=== PATIENT | female | born 1950 | race Caucasian/White ===

== ENCOUNTER 2023-05-25 13:00 | Emergency (ER) | payer OTHER ==
[2023-05-25 13:58] LABS: #Eosinphils 0.2 thou/uL (0.0-0.7); #Monocytes 0.7 thou/uL (0.11-0.59); #Neutrophils 7.4 thou/uL (1.40-6.50); %Basophils 0.4 % (0.0-1.0); %Eosinophils 1.8 % (0.0-10.0); %Lymphocytes 11.9 % (21.0-51.0); %Monocytes 7.7 % (0.0-10.0); %Neutrophils 77.9 % (42.0-75.0); Hematocrit 29.2 % (36.0-47.0); Hemoglobin 8.8 g/dL (12.0-16.0); Mean Corpuscular HGB CONC 30.1 g/dL (32.0-36.0); Mean Corpuscular Hemoglobin 27.3 pg (27.0-31.0); Mean Corpuscular Volume 90.7 fl (78.0-98.0); Mean Platelet Volume 8.9 fL (7.4-10.4); Platelet Count 340 10x3/uL (130-400); RBC Distribution Width 15.7 % (11.5-14.5); Red Blood Cell (RBC) Count 3.22 mill/uL (4.20-5.40); White Blood Cell (WBC) Count 9.5 10x3/uL (4.8-10.8)
[2023-05-25 14:18] LABS: ALT (SGPT) 13 U/L (8-55); AST (SGOT) 19 U/L (5-34); Albumin 2.6 g/dL (3.4-4.8); Alkaline Phosphatase 65 U/L (40-110); Anion Gap 7 mmol/L (10-20); BUN (Urea Nitrogen) 19 mg/dL (9.8-20.1); Bilirubin, Total 0.2 mg/dL (0.2-1.2); Calc. Creatinine Clearance 0 mL/min (70-130); Calcium 7.8 mg/dL (7.8-10.44); Carbon Dioxide 25 mmol/L (23-31); Chloride 109 mmol/L (98-107); Estimated GFR 50; Globulin 2.8 g/dL (2.4-3.5); Glucose 97 mg/dL (83-110); Potassium 4.2 mmol/L (3.5-5.1); Protein, Total 5.4 g/dL (5.8-8.1); Sodium 137 mmol/L (136-145)
[2023-05-25 16:11] LABS: Troponin I 0.013 ng/mL (< 0.028)
[2023-05-25] MEDS ORDERED: Morphine 2 MG/ML VIAL ONE (16:31)
== END 2023-05-25 18:08 | disposition home or self-care (01) ==
LOC: ERS 13:00
DX: T83.091A Other mechanical complication of indwelling urethral catheter, initial encounter (principal); R60.0 Localized edema; E11.42 Type 2 diabetes mellitus with diabetic polyneuropathy; E03.9 Hypothyroidism, unspecified; J44.9 Chronic obstructive pulmonary disease, unspecified; E78.5 Hyperlipidemia, unspecified; I10 Essential (primary) hypertension; N28.89 Other specified disorders of kidney and ureter; N32.9 Bladder disorder, unspecified; F17.210 Nicotine dependence, cigarettes, uncomplicated; Z75.3 Unavailability and inaccessibility of health-care facilities; Z55.6 Problems related to health literacy; Z79.82 Long term (current) use of aspirin; Z79.899 Other long term (current) drug therapy
CPT/HCPCS: 36415; 51702; 80053; 83880; 84484; 85025; 93970; 96374; J2272

== ENCOUNTER 2023-08-21 08:41 | Outpatient (CLI) | payer OTHER ==
[2023-08-21] MEDS ORDERED: Iopamidol 370 76% 100 ML VIAL ONE (10:57)
== END 2023-08-21 08:42 | disposition home or self-care (01) ==
LOC: NM 08:41
PROVIDERS: ATTEND Internal Medicine Hematology & Oncology
DX: C64.2 Malignant neoplasm of left kidney, except renal pelvis (principal); I67.82 Cerebral ischemia; G93.89 Other specified disorders of brain
CPT/HCPCS: 70470; 78306; 82565; A9503; Q9967

== ENCOUNTER 2023-09-30 15:06 | Inpatient (IN) | payer OTHER ==
[2023-09-30 18:33] VITALS: BMI 32.1
[2023-09-30] MEDS ORDERED: Ondansetron PF 4 MG/2 ML Vial IVP PRN ×2 (18:45→19:27)
[2023-09-30] MEDS ORDERED: Acetaminophen 325 MG TAB PO PRN (18:45)
[2023-09-30] MEDS ORDERED: Ondansetron ODT 4 MG TAB SL PRN (18:45)
[2023-09-30] MEDS ORDERED: Ipratropium/Albuterol 3 ML NEB EZPAP PRN (19:27)
[2023-09-30] MEDS ORDERED: hydrALAZINE 20 MG/ML VIAL SLOW IVP PRN (19:40)
[2023-09-30] MEDS ORDERED: Electrolyte Replacement Protocol 1 EACH FS SCH (19:45)
[2023-09-30 20:13] LABS: #Basophils 0.03 10x3/uL (0.0-0.2); %Basophils 0.4 % (0.0-1.0); %Eosinophils 2.1 % (0.0-10.0); %Lymphocytes 16.8 % (21.0-51.0); %Neutrophils 71.5 % (42.0-75.0); Hematocrit 30.8 % (36.0-47.0); Mean Corpuscular HGB CONC 32.5 g/dL (32.0-36.0); Mean Corpuscular Hemoglobin 29.2 pg (27.0-31.0); Mean Corpuscular Volume 90.1 fL (78.0-98.0); Mean Platelet Volume 9.6 fL (7.4-10.4); Platelet Count 272 10x3/uL (130-400); RBC Distribution Width 18.6 % (11.5-14.5); Red Blood Cell (RBC) Count 3.42 mill/uL (4.20-5.40)
[2023-09-30 20:36] LABS: ALT (SGPT) 8 U/L (8-55); AST (SGOT) 16 U/L (5-34); Albumin 2.8 g/dL (3.4-4.8); Alkaline Phosphatase 60 U/L (40-110); Anion Gap 13 mmol/L (10-20); BUN (Urea Nitrogen) 9 mg/dL (9.8-20.1); Bilirubin, Total 0.5 mg/dL (0.2-1.2); Calc. Creatinine Clearance 77 mL/min (70-130); Calcium 8.3 mg/dL (7.8-10.44); Carbon Dioxide 30 mmol/L (23-31); Chloride 100 mmol/L (98-107); Estimated GFR 68; Globulin 3.1 g/dL (2.4-3.5); Glucose 90 mg/dL (83-110); Magnesium 1.5 mg/dL (1.6-2.6); Potassium 2.6 mmol/L (3.5-5.1); Protein, Total 5.9 g/dL (5.8-8.1); Sodium 140 mmol/L (136-145)
[2023-09-30 20:38] LABS: Troponin I 0.064 ng/mL (< 0.028)
[2023-09-30] MEDS: Potassium Chloride 20 MEQ TAB PO SCH (21:24)
[2023-09-30] MEDS: Lorazepam 0.5 MG TAB PO SCH (21:24)
[2023-09-30] MEDS: Magnesium 2 GM/50 ML(in water) 2 GM in Premix 1 BAG IVPB SCH (21:25)
[2023-09-30] MEDS: Cyclobenzaprine 10 MG TAB PO SCH (23:11)
[2023-10-01 00:32] LABS: Troponin I 0.053 ng/mL (< 0.028)
[2023-10-01] MEDS: Furosemide 40 MG (4 mL) VIAL SLOW IVP SCH (05:08)
[2023-10-01 06:49] VITALS: BMI 32.1
[2023-10-01 07:16] LABS: Potassium 3.1 mmol/L (3.5-5.1)
[2023-10-01] MEDS: Enoxaparin 40 MG (0.4 mL) SYRINGE SC SCH (08:36)
[2023-10-01] MEDS: Potassium Chloride 20 MEQ TAB PO SCH ×2 (08:36→14:43)
[2023-10-01] MEDS: Spironolactone 25 MG TAB PO SCH (09:56)
[2023-10-01] MEDS: Aspirin 81 mg Enteric Coated Tablet PO SCH (09:56)
[2023-10-01] MEDS: hydrALAZINE 25 MG TAB PO SCH (09:56)
[2023-10-01] MEDS: Metoprolol Tartrate 50 MG TAB PO SCH (09:56)
[2023-10-01] MEDS ORDERED: Dextrose 50% Abboject 50 ML SYRINGE SLOW IVP PRN (10:32)
[2023-10-01] MEDS ORDERED: HumaLOG 300 UNITS/3 ML VIAL SC PRN (10:32)
[2023-10-01] MEDS ORDERED: Dextrose 5% in Water 1,000 ML IV PRN (10:32)
[2023-10-01] MEDS ORDERED: Glucagon 1 MG/ML KIT IM PRN (10:32)
[2023-10-01 12:29] LABS: Potassium 3.4 mmol/L (3.5-5.1)
[2023-10-01] MEDS: Ipratropium/Albuterol 3 ML NEB NEB SCH (18:59)
[2023-10-01] MEDS: Doxycycline 100 MG CAP PO SCH (20:59)
[2023-10-01] MEDS ORDERED: Rosuvastatin 10 MG TAB PO SCH (21:00)
[2023-10-01] MEDS: Rosuvastatin 10 MG TAB PO SCH (22:07)
[2023-10-01] MEDS: traMADol HCl 50 MG TAB PO PRN (22:07)
[2023-10-02] MEDS: Cyclobenzaprine 10 MG TAB PO SCH ×2 (00:58→20:52)
[2023-10-02 04:41] LABS: #Basophils 0.03 10x3/uL (0.0-0.2); %Basophils 0.4 % (0.0-1.0); %Eosinophils 3.2 % (0.0-10.0); %Lymphocytes 18.5 % (21.0-51.0); %Neutrophils 67.5 % (42.0-75.0); Hematocrit 29.5 % (36.0-47.0); Hemoglobin 9.3 g/dL (12.0-16.0); Mean Corpuscular HGB CONC 31.5 g/dL (32.0-36.0); Mean Corpuscular Hemoglobin 29.3 pg (27.0-31.0); Mean Corpuscular Volume 93.1 fL (78.0-98.0); Mean Platelet Volume 9.5 fL (7.4-10.4); Platelet Count 239 10x3/uL (130-400); RBC Distribution Width 18.4 % (11.5-14.5); Red Blood Cell (RBC) Count 3.17 mill/uL (4.20-5.40)
[2023-10-02 05:10] LABS: Anion Gap 10 mmol/L (10-20); BUN (Urea Nitrogen) 11 mg/dL (9.8-20.1); Calc. Creatinine Clearance 66 mL/min (70-130); Calcium 7.9 mg/dL (7.8-10.44); Carbon Dioxide 31 mmol/L (23-31); Chloride 102 mmol/L (98-107); Estimated GFR 56; Glucose 101 mg/dL (83-110); Potassium 3.9 mmol/L (3.5-5.1); Sodium 139 mmol/L (136-145)
[2023-10-02] MEDS: Levothyroxine Sodium 112 MCG TAB PO SCH (05:15)
[2023-10-02] MEDS: Valsartan 80 MG TAB PO SCH (08:26)
[2023-10-02] MEDS: Empagliflozin 10 MG TAB PO SCH (08:26)
[2023-10-02] MEDS: Spironolactone 25 MG TAB PO SCH (08:26)
[2023-10-02] MEDS: Acetaminophen 325 MG TAB PO PRN (13:26)
[2023-10-02] MEDS: Ondansetron ODT 4 MG TAB PO PRN (15:40)
[2023-10-03 07:07] LABS: #Basophils 0.03 10x3/uL (0.0-0.2); %Basophils 0.4 % (0.0-1.0); %Eosinophils 3.7 % (0.0-10.0); %Lymphocytes 23.2 % (21.0-51.0); %Monocytes 11.2 % (0.0-10.0); %Neutrophils 61.1 % (42.0-75.0); Hemoglobin 9.3 g/dL (12.0-16.0); Mean Corpuscular Hemoglobin 28.7 pg (27.0-31.0); Mean Corpuscular Volume 92.6 fL (78.0-98.0); Mean Platelet Volume 9.8 fL (7.4-10.4); Platelet Count 228 10x3/uL (130-400); RBC Distribution Width 18.2 % (11.5-14.5); Red Blood Cell (RBC) Count 3.24 mill/uL (4.20-5.40)
[2023-10-03 07:49] LABS: Anion Gap 11 mmol/L (10-20); BUN (Urea Nitrogen) 12 mg/dL (9.8-20.1); Calc. Creatinine Clearance 63 mL/min (70-130); Calcium 8.1 mg/dL (7.8-10.44); Carbon Dioxide 31 mmol/L (23-31); Chloride 99 mmol/L (98-107); Estimated GFR 54; Glucose 73 mg/dL (83-110); Potassium 4.2 mmol/L (3.5-5.1); Sodium 137 mmol/L (136-145)
[2023-10-03] MEDS: Furosemide 40 MG TAB PO SCH (09:32)
[2023-10-03 12:47] VITALS: BP 130/62; TEMP 98
[2023-10-03] MEDS ORDERED: Furosemide 20 MG TAB PO SCH (14:00)
== END 2023-10-03 16:38 | disposition home or self-care (01) | DRG 291 ==
LOC: 2NO 18:11 → OBSVTOIN 10-02 15:03
PROVIDERS: ADMIT Family Medicine; ATTEND Internal Medicine
DX: I11.0 Hypertensive heart disease with heart failure (principal); I50.33 Acute on chronic diastolic (congestive) heart failure; J96.00 Acute respiratory failure, unspecified whether with hypoxia or hypercapnia; J44.1 Chronic obstructive pulmonary disease with (acute) exacerbation; E78.5 Hyperlipidemia, unspecified; D64.9 Anemia, unspecified; E03.9 Hypothyroidism, unspecified; E11.42 Type 2 diabetes mellitus with diabetic polyneuropathy; F17.210 Nicotine dependence, cigarettes, uncomplicated; R91.8 Other nonspecific abnormal finding of lung field; I5A Non-ischemic myocardial injury (non-traumatic); R53.81 Other malaise; Z88.0 Allergy status to penicillin; Z88.1 Allergy status to other antibiotic agents; Z88.8 Allergy status to other drugs, medicaments and biological substances; Z79.890 Hormone replacement therapy; Z79.82 Long term (current) use of aspirin; Z79.899 Other long term (current) drug therapy; Z90.49 Acquired absence of other specified parts of digestive tract
CPT/HCPCS: 36415; 36416; 80048; 82607; 83735; 84132; 85025; 93306; 93970; 94640; J1650; J1940; J3475; J7620; Q0162